=== PATIENT | male | born 2000 | race Caucasian/White ===

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

== ENCOUNTER 2024-04-24 17:55 | Emergency (ER) | payer OTHER, SELFPAY ==
[2024-04-24 18:01] VITALS: BP 121/83; PULSE 64; RESP 20; TEMP 36.9; O2SAT 98
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
== END 2024-04-24 19:00 | disposition home or self-care (01) ==
LOC: ER 19:49
PROVIDERS: Emergency Provider Nurse Practitioner Family
DX: Z04.1 Encounter for examination and observation following transport accident (principal)
CPT/HCPCS: 99282